=== PATIENT | male | born 1975 ===

== ENCOUNTER 2024-08-04 18:24 | Emergency (ER) | payer OTHER, SELFPAY ==
[2024-08-04 18:30] VITALS: BP 138/83
--- NOTE | 2024-08-04 19:18 | EDRN ---
has bleeding controlled with nose clip. No LOC put pt did drop to knees. No pain to palpation across sinuses.
--- NOTE | 2024-08-04 21:05 | ED.GENMED ---
History of Present Illness
General
Chief Complaint: Facial Problem
Source: patient
Exam Limitations: none
Time Seen by Provider: 08/04/24 19:23
Nursing documentation reviewed up to this point in time: agreed with
History of Present Illness
History of Present Illness:
Patient states he was accidentally hit by baseball on nose. No LOC. COmplains of pain and swelling to nose. 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 Brought to ED by spouse for eval.
Past History
Past History
ED Past Medical History: None
Review of Systems
Review of Systems
Allergies reviewed?: Yes
All Other Systems: ROS reviewed and negative except as documented in HPI and ROS
Constitutional: Reports no symptoms
EENT: Reports other (epistaxis WASHING MACHINE OPERATOR)
Respiratory: Reports no symptoms
Cardiac: Reports no symptoms
ABD/GI: Reports no symptoms
: Reports no symptoms
Musculoskeletal: Reports joint pain (pain, swelling, bruising to nose)
Skin: Reports other (abrasion bridge of nose)
Neurological: Reports no symptoms
Psychiatric: Reports no symptoms
Phy Exam
General Physical Exam
General Presentation: mild distress
General age: appears stated age
General Skin: warm and dry
General Habitus: normal
General Mental: alert
ENT Exam
ENT Exam: EOMI and other (No active nasal bleeding, No septal hematoma)
Neurological Exam
Neurological Exam: alert, oriented x3, CN II-XII intact, no motor deficits, no sensory deficits and speech normal
Lilian Coma Scale
Eye Opening: Spontaneous
Verbal Response: Oriented
Motor Response: Obeys Commands
GCS Total Score: 15
Musculoskeletal Exam
Musculoskeletal Exam: full ROM
Skin Exam
Skin Exam: normal color, warm/dry, no rash and other (superficial abrasion to bridge of nose)
Psychiatric Exam
Psychiatric Exam: normal mood/affect
Course
Orders/Labs/Results
Orders:
Orders
08/04/24 19:32
Nasal Bones, complete 3 Views [CR Nasal Bones Comp Min 3 View] Urgent
Comment:
Reason For Exam: hit in the nose with a baseball. pain
Vital Signs
Initial and Last Documented VS:
Initial Vital Signs
Temp Pulse Resp BP Pulse Ox
97.5 F 59 19 138/83 98
08/04/24 18:30 08/04/24 18:30 08/04/24 18:30 08/04/24 18:30 08/04/24 18:30
Last Documented Vital Signs
Temp Pulse Resp BP Pulse Ox
97.5 F 66 16 99/55 99
08/04/24 18:30 08/04/24 21:30 08/04/24 21:30 08/04/24 21:30 08/04/24 21:30
*Radiology
Radiology exam reviewed: radiology read reviewed
*Pulse Oximetry
Patient hypoxic: no
*Critical Care Note
Total Time (30-74mins, 75-104mins- exclusive of procedures): Not Applicable
Update Note
Update Note:
Patient to ED after getting hit on nose by baseball. No LOC. Xray of nasal bones confirms depressed fracture. No evidence of septal hematoma on exam. Neurologically he is baseline. He will be discharged home and will follow up with PCP. Given
instructions on s/s to return to ED and he is agreeable to plan.
ED Attending Note
-
Portions of this chart may have been created with voice recognition software.� Occasional wrong word or��sound alike� substitutions may have occurred due to the inherent limitations of voice recognition software.
Discharge Plan
Departure
Patient Disposition: Home (Routine Discharge)
Date of Disposition: 08/04/24
Time of Disposition: 21:03
Patient with high blood pressure during this ER visit?: No
Condition: Good
Covid-19: Not Applicable
Discharge Problem:
Fracture of nasal bones
Instructions: Head injury in adults, Nose Fracture ED, Nosebleeds - ED discharge instructions
Referrals:
Michael Hidalgo MD [Active, Otology] - Call in 1-3 days for appt
NONE,* [Family Provider, Internal Medicine]
Stand Alone Forms: Return to Work
Interventions
Interventions:
*Risk Screen - Suicide Last Done: 08/04/24 18:30
*General Assessment Last Done: 08/04/24 19:14
*Neglect/Abuse Screening Last Done: 08/04/24 18:30
*ED- Fall Risk Assessment Last Done: 08/04/24 19:14
*ED COVID-19 Vaccine History Last Done: 08/04/24 19:14
*Nursing Disposition Last Done: 08/04/24 21:30
ED- Neurological Assessment Last Done: 08/04/24 19:14
ED-Skin Assessment Last Done: 08/04/24 19:14
Discharge Date and Time
Discharge Date/Time: 08/04/24 21:30
Print Language: SWEDISH
Musculoskeletal Injury Exam
Musculoskeletal Injury Exam
Nose:
Pain with Movement?: Moderate
Tender to palpation?: Moderate
Soft tissue swelling?: Moderate
External deformity and angulation?: None
Joint effusion?: None
Contusion?: Moderate
Hematoma-local bleeding into tissue?: Moderate
Crepitus with movement?: No
Joint instability?: No
Malalignment/deformity?: No
Distal skin color and temperature: normal-warm & good color
Capillary Refill: normal
Normal distal neurovascular exam?: Yes
[2024-08-04 21:30] VITALS: BP 99/55
== END 2024-08-04 21:30 | disposition home or self-care (01) ==
LOC: EMR 18:24
PROVIDERS: EMERGENCY PHYSICIAN Emergency Medicine
DX: S02.2XXA Fracture of nasal bones, initial encounter for closed fracture (principal); W21.03XA Struck by baseball, initial encounter
CPT/HCPCS: 99283; 70160